=== PATIENT | male | born 1985 | race African-American/Black ===

== ENCOUNTER 2017-06-20 18:16 | Emergency (ER) | payer SELFPAY | END 2017-06-20 19:35 | disposition home or self-care (01) | LOC: D.ER 18:16 | DX: L03.211 Cellulitis of face (principal); F17.200 Nicotine dependence, unspecified, uncomplicated ==

== ENCOUNTER 2017-07-05 17:51 | Emergency (ER) | payer SELFPAY | END 2017-07-05 19:24 | disposition home or self-care (01) | LOC: D.ER 17:51 | DX: L20.9 Atopic dermatitis, unspecified (principal); F17.200 Nicotine dependence, unspecified, uncomplicated ==

== ENCOUNTER 2018-08-06 00:09 | Emergency (ER) | payer SELFPAY ==
[~2018-08-06] VITALS: Ht 172.7 cm; Wt 103.2 kg
[2018-08-06 00:17] VITALS: Ht 172.7 cm; Wt 103.2 kg
[2018-08-06] MEDS ORDERED: CLEOCIN HCL300 MG PO (00:52)
[2018-08-06] MEDS ORDERED: EC-NAPROSYN500 MG PO (00:52)
[2018-08-06 01:20] VITALS: BP 138/77
== END 2018-08-06 01:21 | disposition home or self-care (01) ==
LOC: D.ER 00:09
DX: K02.9 Dental caries, unspecified (principal); F17.200 Nicotine dependence, unspecified, uncomplicated

== ENCOUNTER 2019-05-07 02:05 | Emergency (ER) | payer MEDICAID ==
[~2019-05-07] VITALS: Ht 172.7 cm; Wt 106.6 kg
[~2019-05-07 02:05] MED LIST: CLEOCIN HCL300 MG PO; EC-NAPROSYN500 MG PO
[2019-05-07 02:13] VITALS: Ht 172.7 cm; Wt 106.6 kg
[2019-05-07] MEDS ORDERED: OMNICEF300 MG PO (02:27)
[2019-05-07 02:53] VITALS: BP 141/82
== END 2019-05-07 02:54 | disposition home or self-care (01) ==
LOC: D.ER 02:05
DX: H60.92 Unspecified otitis externa, left ear (principal)

== ENCOUNTER 2019-07-25 22:00 | Emergency (ER) | payer MEDICAID ==
[~2019-07-25] VITALS: Ht 172.7 cm; Wt 109.1 kg
[~2019-07-25 22:00] MED LIST changes: +OMNICEF300 MG PO
[2019-07-25 22:03] VITALS: Ht 172.7 cm; Wt 109.1 kg
[2019-07-25 22:27] LABS: APPEARANCE CLEAR (CLEAR); COLOR YELLOW (YELLOW)
[2019-07-25 22:28] LABS: BILIRUBIN NEGATIVE (NEGATIVE); GLUCOSE NEGATIVE (NEGATIVE); KETONE NEGATIVE (NEGATIVE); NITRITE NEGATIVE (NEGATIVE); PROTEIN NEGATIVE (NEGATIVE); SPECIFIC GRAVITY 1.015 (1.005-1.020); UROBILINOGEN NORMAL (NORMAL)
[2019-07-25] MEDS ORDERED: FLAGYL500 MG PO (22:36)
[2019-07-25 23:06] VITALS: BP 121/82
== END 2019-07-25 23:07 | disposition home or self-care (01) ==
LOC: D.ER 22:00
PROVIDERS: Family Medicine
DX: Z20.2 Contact with and (suspected) exposure to infections with a predominantly sexual mode of transmission (principal)